=== PATIENT | female | born 1980 | race African-American/Black ===

== ENCOUNTER 2019-08-17 17:34 | Emergency (ER) | payer MEDICARE, OTHER ==
[~2019-08-17] VITALS: Ht 167.6 cm; Wt 65.8 kg
[2019-08-17] MEDS ORDERED: CLONIDINE HCL 0.1 MG TAB ONE (18:40)
[2019-08-17] MEDS ORDERED: CLONIDINE HCL 0.2 MG TAB PO ONE (18:45)
[2019-08-17 19:32] VITALS: BP 188/78
== END 2019-08-17 19:45 | disposition home or self-care (01) ==
LOC: FSED 17:34
DX: H66.92 Otitis media, unspecified, left ear (principal); I10 Essential (primary) hypertension
CPT/HCPCS: 99283